=== PATIENT | female | born 1995 | race Two or more races ===

== ENCOUNTER 2020-01-26 17:29 | Emergency (ER) | payer BC ==
--- NOTE | 2020-01-26 18:09 | EDM.PDOC ---
<Carlos Chu - Last Filed: 01/26/20 20:57> ED HPI GENERAL MEDICAL PROBLEM - General Chief Complaint: General Stated Complaint: FEVER X5DAYS,NAUSEA/VOMITING X2DAYS Time Seen by Provider: 01/26/20 19:02 - History of Present Illness INITIAL COMMENTS - FREE TEXT/NARRATIVE: 24-year-old female presents the emergency room not feeling well. She has had fevers to high as 102 she is had significant nausea vomiting and an occasional loose stool. Patient was sent here from the walk-in clinic and apparently she had a lot of bilirubin in her urine. Patient describes not a lot of discomfort this is now 5 days into this earlier on she had higher fevers in the 102-102.5 range these seem to have backed down somewhat. Patient has a few more hard stools but she has not been eating very much. She is starting to take fluids better. She was tested for Covid twice both times negative she did not have loss of taste or smell. She does not have a lot of significant abdominal discomfort with this. Patient denies any history of a prior abdominal surgeries. She also denies any other medical problems. - Related Data Allergies Allergy/AdvReac Type Severity Reaction Status Date / Time No Known Allergies Allergy Verified 01/26/20 17:45 Home Meds: Home Meds Albuterol Sulfate [Albuterol Sulfate Hfa] 2 puff INH ASDIRECTED PRN 01/26/20 [History] Ondansetron [Zofran ODT] 4 - 8 mg PO Q6H PRN #20 tab.dis 01/26/20 [Rx] ED ROS GENERAL - Review of Systems Review Of Systems: See Below Constitutional: Reports: No Symptoms HEENT: Reports: No Symptoms Respiratory: Reports: No Symptoms Cardiovascular: Reports: No Symptoms, Dyspnea on Exertion GI/Abdominal: Reports: Abdominal Pain, Anorexia, Diarrhea, Decreased Appetite, Nausea, Vomiting. Denies: Black Stool, Bloody Stool : Reports: No Symptoms Musculoskeletal: Reports: No Symptoms Skin: Reports: No Symptoms Neurological: Reports: No Symptoms ED EXAM, GENERAL - Physical Exam Exam: See Below Exam Limited By: No Limitations General Appearance: Alert, No Apparent Distress Head: Atraumatic, Normocephalic Neck: Normal Inspection, Supple, Non-Tender, Full Range of Motion Respiratory/Chest: No Respiratory Distress, Lungs Clear, Normal Breath Sounds, No Accessory Muscle Use, Chest Non-Tender Cardiovascular: Normal Peripheral Pulses, Regular Rate, Rhythm, No Edema, No Gallop, No JVD, No Murmur, No Rub GI/Abdominal: Normal Bowel Sounds, Soft, Non-Tender. No: Rigid, Rebound, Tender Back Exam: Normal Inspection. No: CVA Tenderness (L), CVA Tenderness (R) Neurological: Alert, Oriented, Normal Cognition Course - Re-Assessments/Exams Free Text/Narrative Re-Assessment/Exam: 01/26/20 20:58 Hepatitis panel is pending at this point and of no surprises her Monospot is positive. This could very well explain all of her symptoms. Her direct bili is a little elevated at 1.6 with a total bilirubin of 2.2 her albumin is borde rline low at 3.4 this could be contributing to this. She has got a moderate transaminitis AST 335 ALT 461 GGT is 254 alk phos is 173 hepatitis panel is pending Departure - Departure Time of Disposition: 21:04 Disposition: Home, Self-Care 01 Clinical Impression: Infectious mononucleosis hepatitis - Discharge Information Prescriptions: Ondansetron [Zofran ODT] 4 - 8 mg PO Q6H PRN #20 tab.dis PRN Reason: Nausea/Vomiting Instructions: Infectious Mononucleosis, [id number] Referrals: Liza Wright, [employer]SEMBLER [Primary Care Provider] - Forms: ED Department Discharge Additional Instructions: Return to the emergency room with any questions problems or worsening symptoms. Push lots of fluids. Follow-up with your regular healthcare provider early this next week for recheck have them keep a close eye on your labs. You have been been given a prescription for Zofran take 1 every 4-6 hours as needed for nausea so you can keep a moderate diet and take adequate fluids. Was sent electronically to [facility] pharmacy You may use Tylenol for discomfort no more than 650 mg 4 times a day. Avoid ibuprofen or any of the other nonsteroidal anti-inflammatory medications. <Farhad Ibarra - Last Filed: 01/30/20 07:44> ED HPI GENERAL MEDICAL PROBLEM Head Pain Score (Numeric/FACES): 6 Past Medical History - Past Health History Medical/Surgical History: Denies Medical/Surgical History HEENT History: Reports: Impaired Vision Other HEENT History: wears reading glasses - Past Surgical History HEENT Surgical History: Reports: Tonsillectomy Social & Family History - Tobacco Use Tobacco Use Status *Q: Never Tobacco User - Caffeine Use Caffeine Use: Reports: None - Recreational Drug Use Recreational Drug Use: No Course - Vital Signs Last Recorded V/S: Last Vital Signs Temp 38.0 C 01/26/20 19:00 Pulse 62 01/26/20 17:41 Resp 20 01/26/20 17:41 BP Pulse Ox 98 01/26/20 17:41 - Orders/Labs/Meds Labs: Laboratory Tests 01/26/20 01/26/20 01/26/20 Range/Units 18:52 18:52 18:52 WBC 5.38 (3.98-10.04) K/mm3 RBC 4.85 (3.98-5.22) M/mm3 Hgb 14.6 (11.2-15.7) gm/dl Hct 43.0 (34.1-44.9) % MCV 88.7 (79.4-94.8) fl MCH 30.1 (25.6-32.2) pg MCHC 34.0 (32.2-35.5) g/dl RDW Std Deviation 39.1 (36.4-46.3) fL Plt Count 151 L (182-369) K/mm3 MPV 10.5 (9.4-12.3) fl Neut % (Auto) 14.4 L (34.0-71.1) % Lymph % (Auto) 64.9 H (19.3-51.7) % [place] % (Auto) 15.1 H (4.7-12.5) % Eos % (Auto) 0 L (0.7-5.8) Baso % (Auto) 5.4 H (0.1-1.2) % Neut # (Auto) 0.78 L (1.56-6.13) K/mm3 Lymph # (Auto) 3.49 (1.18-3.74) K/mm3 [place] # (Auto) 0.81 H (0.24-0.36) K/mm3 Eos # (Auto) 0.00 L (0.04-0.36) K/mm3 Baso # (Auto) 0.29 H (0.01-0.08) K/mm3 Manual Slide Review Abnormal smear PT 10.7 (9.7-12.0) SECONDS INR 1.00 Sodium 138 (136-145) mEq/L Potassium 3.7 (3.5-5.1) mEq/L Chloride 101 (98-107) mEq/L Carbon Dioxide 24 (21-32) mEq/L Anion Gap 16.7 H (5-15) BUN 9 (7-18) mg/dL Creatinine 0.7 (0.55-1.02) mg/dL Est Cr Clr Drug Dosing 91.90 mL/min Estimated GFR (MDRD) > 60 (>60) mL/min BUN/Creatinine Ratio 12.9 L (14-18) Glucose 85 (74-106) mg/dL Calcium 9.2 (8.5-10.1) mg/dL Total Bilirubin 2.2 H (0.2-1.0) mg/dL Direct Bilirubin 1.60 H (0.0-0.2) mg/dl GGT 254 H (5-55) U/L AST 335 H (15-37) U/L ALT 461 H (14-59) U/L Alkaline Phosphatase 173 H (46-116) U/L Total Protein 7.3 (6.4-8.2) g/dl Albumin 3.5 (3.4-5.0) g/dl Globulin 3.8 gm/dL Albumin/Globulin Ratio 0.9 L (1-2) Amylase (25-115) U/L Lipase (73-393) U/L Urine Color (Yellow) Urine Appearance (Clear) Urine pH (5.0-8.0) Ur Specific [place] (1.005-1.030) Urine Protein (Negative) Urine Glucose (UA) (Negative) Urine Ketones (Negative) Urine Occult Blood (Negative) Urine Nitrite (Negative) Urine Bilirubin (Negative) Urine Urobilinogen (0.2-1.0) Ur Leukocyte Esterase (Negative) Urine RBC (0-5) /hpf Urine WBC (0-5) /hpf Ur Squamous Epith Cells (0-5) /hpf Urine Bacteria (FEW) /hpf Urine Mucus (FEW) /hpf Hepatitis A IgM Ab (Negative) Hep Bs Antigen (Negative) Hep B Core IgM Ab (Negative) Hepatitis C Antibody (0.0-0.9) s/co ratio Monoscreen (NEGATIVE) 01/26/20 01/26/20 01/26/20 Range/Units 18:52 18:52 19:59 WBC (3.98-10.04) K/mm3 RBC (3.98-5.22) M/mm3 Hgb (11.2-15.7) gm/dl Hct (34.1-44.9) % MCV (79.4-94.8) fl MCH (25.6-32.2) pg MCHC (32.2-35.5) g/dl RDW Std Deviation (36.4-46.3) fL Plt Count (182-369) K/mm3 MPV (9.4-12.3) fl Neut % (Auto) (34.0-71.1) % Lymph % (Auto) (19.3-51.7) % [place] % (Auto) (4.7-12.5) % Eos % (Auto) (0.7-5.8) Baso % (Auto) (0.1-1.2) % Neut # (Auto) (1.56-6.13) K/mm3 Lymph # (Auto) (1.18-3.74) K/mm3 [place] # (Auto) (0.24-0.36) K/mm3 Eos # (Auto) (0.04-0.36) K/mm3 Baso # (Auto) (0.01-0.08) K/mm3 Manual Slide Review PT (9.7-12.0) SECONDS INR Sodium (136-145) mEq/L Potassium (3.5-5.1) mEq/L Chloride (98-107) mEq/L Carbon Dioxide (21-32) mEq/L Anion Gap (5-15) BUN (7-18) mg/dL Creatinine (0.55-1.02) mg/dL Est Cr Clr Drug Dosing mL/min Estimated GFR (MDRD) (>60) mL/min BUN/Creatinine Ratio (14-18) Glucose (74-106) mg/dL Calcium (8.5-10.1) mg/dL Total Bilirubin (0.2-1.0) mg/dL Direct Bilirubin (0.0-0.2) mg/dl GGT (5-55) U/L AST (15-37) U/L ALT (14-59) U/L Alkaline Phosphatase (46-116) U/L Total Protein (6.4-8.2) g/dl Albumin (3.4-5.0) g/dl Globulin gm/dL Albumin/Globulin Ratio (1-2) Amylase 39 (25-115) U/L Lipase 66 L (73-393) U/L Urine Color (Yellow) Urine Appearance (Clear) Urine pH (5.0-8.0) Ur Specific [place] (1.005-1.030) Urine Protein (Negative) Urine Glucose (UA) (Negative) Urine Ketones (Negative) Urine Occult Blood (Negative) Urine Nitrite (Negative) Urine Bilirubin (Negative) Urine Urobilinogen (0.2-1.0) Ur Leukocyte Esterase (Negative) Urine RBC (0-5) /hpf Urine WBC (0-5) /hpf Ur Squamous Epith Cells (0-5) /hpf Urine Bacteria (FEW) /hpf Urine Mucus (FEW) /hpf Hepatitis A IgM Ab Negative (Negative) Hep Bs Antigen Negative (Negative) Hep B Core IgM Ab Negative (Negative) Hepatitis C Antibody <0.1 (0.0-0.9) s/co ratio Monoscreen Positive H (NEGATIVE) 01/26/20 Range/Units 20:18 WBC (3.98-10.04) K/mm3 RBC (3.98-5.22) M/mm3 Hgb (11.2-15.7) gm/dl Hct (34.1-44.9) % MCV (79.4-94.8) fl MCH (25.6-32.2) pg MCHC (32.2-35.5) g/dl RDW Std Deviation (36.4-46.3) fL Plt Count (182-369) K/mm3 MPV (9.4-12.3) fl Neut % (Auto) (34.0-71.1) % Lymph % (Auto) (19.3-51.7) % [place] % (Auto) (4.7-12.5) % Eos % (Auto) (0.7-5.8) Baso % (Auto) (0.1-1.2) % Neut # (Auto) (1.56-6.13) K/mm3 Lymph # (Auto) (1.18-3.74) K/mm3 [place] # (Auto) (0.24-0.36) K/mm3 Eos # (Auto) (0.04-0.36) K/mm3 Baso # (Auto) (0.01-0.08) K/mm3 Manual Slide Review PT (9.7-12.0) SECONDS INR Sodium (136-145) mEq/L Potassium (3.5-5.1) mEq/L Chloride (98-107) mEq/L Carbon Dioxide (21-32) mEq/L Anion Gap (5-15) BUN (7-18) mg/dL Creatinine (0.55-1.02) mg/dL Est Cr Clr Drug Dosing mL/min Estimated GFR (MDRD) (>60) mL/min BUN/Creatinine Ratio (14-18) Glucose (74-106) mg/dL Calcium (8.5-10.1) mg/dL Total Bilirubin (0.2-1.0) mg/dL Direct Bilirubin (0.0-0.2) mg/dl GGT (5-55) U/L AST (15-37) U/L ALT (14-59) U/L Alkaline Phosphatase (46-116) U/L Total Protein (6.4-8.2) g/dl Albumin (3.4-5.0) g/dl Globulin gm/dL Albumin/Globulin Ratio (1-2) Amylase (25-115) U/L Lipase (73-393) U/L Urine Color Yellow (Yellow) Urine Appearance Clear (Clear) Urine pH 7.0 (5.0-8.0) Ur Specific [place] 1.025 (1.005-1.030) Urine Protein 1+ H (Negative) Urine Glucose (UA) Negative (Negative) Urine Ketones 2+ H (Negative) Urine Occult Blood Negative (Negative) Urine Nitrite Negative (Negative) Urine Bilirubin 3+ H (Negative) Urine Urobilinogen 4.0 H (0.2-1.0) Ur Leukocyte Esterase Negative (Negative) Urine RBC 0-5 (0-5) /hpf Urine WBC 0-5 (0-5) /hpf Ur Squamous Epith Cells 5-10 H (0-5) /hpf Urine Bacteria Few (FEW) /hpf Urine Mucus Moderate H (FEW) /hpf Hepatitis A IgM Ab (Negative) Hep Bs Antigen (Negative) Hep B Core IgM Ab (Negative) Hepatitis C Antibody (0.0-0.9) s/co ratio Monoscreen (NEGATIVE) Meds: Medications Discontinued Medications Generic Name Dose Route Start Last Admin Trade Name Freq PRN Reason Stop Dose Admin Lactated Ringer's 1,000 mls @ 999 mls/hr 01/26/20 19:21 01/26/20 19:26 Ringers, Lactated IV 01/26/20 20:21 999 mls/hr .BOLUS ONE Administration Ondansetron HCl 4 mg 01/26/20 20:56 01/26/20 21:19 Zofran Odt PO 01/26/20 20:57 4 mg ONETIME ONE Administration Sepsis Event Note (ED) - Evaluation Sepsis Screening Result: No Definite Risk
[2020-01-26] MEDS ORDERED: Lactated Ringers 1,000 ML IV ONE (19:21)
[2020-01-26] MEDS ORDERED: Ondansetron 4 MG Tab.DIS PO ONE (20:56)
== END 2020-01-26 21:19 | disposition home or self-care (01) ==
LOC: JD.ED 17:29
DX: B27.90 Infectious mononucleosis, unspecified without complication (principal); K75.9 Inflammatory liver disease, unspecified
CPT/HCPCS: 36415; 80053; 80074; 81001; 82150; 82248; 82977; 83690; 85025; 85610; 86308; 99284; A9270; J7120

== ENCOUNTER 2020-12-31 22:20 | Emergency (ER) | payer BC ==
[2020-12-31] MEDS ORDERED: Sodium Chloride 0.9% 1,000 ML IV ONE (23:01)
--- NOTE | 2021-01-01 00:30 | EDM.PDOC ---
ED HPI GENERAL MEDICAL PROBLEM - General Chief Complaint: CHIEF [employer]W SCHEDULER Problem Stated Complaint: VAGINAL BLEEDING/ Time Seen by Provider: 12/31/20 22:34 Source of Information: Reports: Patient History Limitations: Reports: No Limitations - History of Present Illness INITIAL COMMENTS - FREE TEXT/NARRATIVE: Patient is a 25-year-old female who is presenting here with vaginal bleeding after she had 3+ tests at home. Patient's last menstrual. Was approximately 5 weeks ago and that was a normal period. She is having mild vaginal cramping and has never been before. She denies being lightheaded with standing or any nausea or vomiting. She has had no dysuria. She has not been seen by a CHIEF CREW SCHEDULER. Patient would be 2 to 3 weeks by dates. Onset: Today Duration: Intermittent Location: Reports: Pelvis Quality: Reports: Ache Severity: Mild Improves with: Reports: None Worsens with: Reports: None Lower Abdomen Pain Score (Numeric/FACES): 3 - Related Data Allergies Allergy/AdvReac Type Severity Reaction Status Date / Time No Known Allergies Allergy Verified 12/31/20 22:37 Home Meds: Home Meds Albuterol Sulfate [Albuterol Sulfate Hfa] 2 puff INH ASDIRECTED PRN 01/26/20 [History] Ondansetron [Zofran ODT] 4 - 8 mg PO Q6H PRN #20 tab.dis 01/26/20 [Rx] Past Medical History - Past Health History Medical/Surgical History: Denies Medical/Surgical History HEENT History: Reports: Impaired Vision Other HEENT History: wears reading glasses - Past Surgical History HEENT Surgical History: Reports: Tonsillectomy Social & Family History - Tobacco Use Tobacco Use Status *Q: Never Tobacco User - Caffeine Use Caffeine Use: Reports: Coffee, Soda - Recreational Drug Use Recreational Drug Use: No ED ROS GENERAL - Review of Systems Review Of Systems: Comprehensive ROS is negative, except as noted in HPI. GI/Abdominal: Reports: Abdominal Pain : Reports: Other (Positive for vaginal bleeding starting today. Patient has had a home positive test.) ED EXAM - Physical Exam Exam: See Below Exam Limited By: No Limitations General Appearance: Alert, No Apparent Distress Head: Normocephalic Neck: Supple Respiratory/Chest: No Respiratory Distress, Lungs Clear Cardiovascular: Regular Rate, Rhythm GI/Abdominal Exam: Normal Bowel Sounds, Soft, Tender Back Exam: Normal Inspection Extremities: Normal Inspection Neurological: Alert, Oriented Psychiatric: Normal Affect, Normal Mood Skin Exam: Warm, Dry Course - Vital Signs Text/Narrative:: Patient's quantitative beta hCG returned at 1. Patient is O+ and does not need RhoGam. She got a liter of fluid here and is aware that her hormone level is seriously low. She is aware she most likely had a miscarriage. She needs to follow-up with her PCP or CHIEF CREW SCHEDULER to recheck that level to make sure it goes down to 0. Patient may return to emergency department if symptoms are worse. Last Recorded V/S: Last Vital Signs Temp 96.9 F 12/31/20 22:32 Pulse 79 12/31/20 22:32 Resp 20 12/31/20 22:32 BP 134/92 H 12/31/20 22:32 Pulse Ox 99 12/31/20 22:32 - Orders/Labs/Meds Labs: Laboratory Tests 12/31/20 12/31/20 Range/Units 23:25 23:30 HCG, Quant 1.0 mIU/mL Urine Color Yellow (Yellow) Urine Appearance Clear (Clear) Urine pH 6.5 (5.0-8.0) Ur Specific [place] 1.025 (1.005-1.030) Urine Protein Negative (Negative) Urine Glucose (UA) Negative (Negative) Urine Ketones Negative (Negative) Urine Occult Blood 3+ H (Negative) Urine Nitrite Negative (Negative) Urine Bilirubin Negative (Negative) Urine Urobilinogen 1.0 (0.2-1.0) Ur Leukocyte Esterase Negative (Negative) Meds: Medications Discontinued Medications Generic Name Dose Route Start Last Admin Trade Name Freq PRN Reason Stop Dose Admin Sodium Chloride 1,000 mls @ 1,000 mls/hr 12/31/20 23:01 12/31/20 23:28 Normal Saline IV 01/01/21 00:00 1,000 mls/hr ONETIME ONE Administration Departure - Departure Time of Disposition: 00:28 Disposition: Home, Self-Care 01 Condition: Good Clinical Impression: Complete miscarriage - Discharge Information Instructions: Miscarriage, [id number] Referrals: Liza Wright, [employer]ACHINE OPERATOR [Primary Care Provider] - Additional Instructions: Follow-up with PCP or CHIEF CREW SCHEDULER to make sure that your hormone level has gone down to 0. Return to emergency department if symptoms are worse. Sepsis Event Note (ED) - Evaluation Sepsis Screening Result: No Definite Risk - Focused Exam Vital Signs: Vital Signs Temp Pulse Resp BP Pulse Ox 12/31/20 22:32 96.9 F 79 20 134/92 H 99
== END 2021-01-01 00:45 | disposition home or self-care (01) ==
LOC: JD.ED 22:20
DX: O03.9 Complete or unspecified spontaneous abortion without complication (principal)
CPT/HCPCS: 36415; 84702; 99284; J7030

== ENCOUNTER 2021-12-24 02:24 | Emergency (ER) | payer BC ==
[2021-12-24] MEDS ORDERED: Ondansetron 4 MG Tab.DIS PO ONE (02:51)
[2021-12-24 03:59] LABS: CORONAVIRUS COVID-19 NAA POSITIVE (NEGATIVE)
== END 2021-12-24 04:10 | disposition home or self-care (01) ==
LOC: JD.ED 02:24
DX: U07.1 COVID-19 (principal)
CPT/HCPCS: 0241U; 99283; A9270

== ENCOUNTER 2022-04-15 07:04 | Inpatient (IN) | payer BC ==
[2022-04-15] MEDS ORDERED: Ondansetron 4 MG/2 ML SDV IVPUSH PRN (07:41)
[2022-04-15] MEDS ORDERED: Nalbuphine 10 MG/0.5 ML Syringe IVPUSH PRN (07:41)
[2022-04-15] MEDS ORDERED: Acetaminophen 325 MG Tab PO PRN (07:41)
[2022-04-15] MEDS ORDERED: Calcium Carbonate 500 MG Tab.Chew PO PRN (07:41)
[2022-04-15] MEDS ORDERED: Lidocaine 1% 50 ML MDV INJECT SCH (07:41)
[2022-04-15] MEDS ORDERED: Oxytocin/Lactated Ringers 10 UNIT/1,000 ML BAG IV SCH (07:45)
[2022-04-15] MEDS: Lactated Ringers 1,000 ML IV SCH ×2 (08:00→21:18)
[2022-04-15] MEDS: Oxytocin/Lactated Ringers 10 UNIT/1,000 ML BAG IV SCH ×2 (08:00→18:07)
[2022-04-15] MEDS ORDERED: fentaNYL 100 MCG/2 ML SDV EPIDUR PRN (20:59)
[2022-04-15] MEDS ORDERED: diphenhydrAMINE 50 MG/ML SDV IVPUSH PRN (20:59)
[2022-04-15] MEDS ORDERED: ePHEDrine 50 MG/ML SDV IVPUSH PRN (20:59)
[2022-04-15] MEDS: Bupivacaine/fentaNYL/NS 100 ML Bag EPIDUR PRN (21:15)
[2022-04-16] MEDS: Oxytocin/Lactated Ringers 10 UNIT/1,000 ML BAG IV SCH ×2 (00:29→11:32)
[2022-04-16] MEDS: Bupivacaine/fentaNYL/NS 100 ML Bag EPIDUR PRN (06:48)
[2022-04-16] MEDS ORDERED: Ropivacaine 0.2% PF 2 MG/ML 20 ML SDV ONE (08:00)
[2022-04-16] MEDS ORDERED: Lidocaine 2% with EPINEPHrine 1:200,000 20 ML SDV ONE (08:00)
[2022-04-16] MEDS ORDERED: Azithromycin 500 MG in Sodium Chloride 0.9% 250 ML IV ONE (12:07)
[2022-04-16] MEDS ORDERED: Citric Acid/Sodium Citrate Solution 30 ML Cup ONE (12:07)
[2022-04-16] MEDS ORDERED: Metoclopramide 10 MG/2 ML SDV ONE (12:07)
[2022-04-16] MEDS ORDERED: ceFAZolin 2 GM in Sodium Chloride 0.9% 50 ML IV ONE (12:07)
[2022-04-16] MEDS ORDERED: Metoclopramide 10 MG/2 ML SDV IVPUSH ONE (12:07)
[2022-04-16] MEDS ORDERED: Citric Acid/Sodium Citrate Solution 30 ML Cup PO ONE (12:07)
[2022-04-16] MEDS ORDERED: Bupivacaine 0.5% 30 ML SDV ONE (12:15)
[2022-04-16] MEDS ORDERED: Ondansetron 4 MG/2 ML SDV ONE ×2 (12:22→13:10)
[2022-04-16] MEDS ORDERED: Oxytocin 10 Units/1 ML SDV ONE (12:22)
[2022-04-16] MEDS ORDERED: ceFAZolin 2 GM Vial ONE (12:30)
[2022-04-16] MEDS ORDERED: Methylergonovine 0.2 MG/1 ML Amp ONE (12:59)
[2022-04-16] MEDS ORDERED: Ketorolac 30 MG/ML SDV ONE (13:10)
[2022-04-16] MEDS ORDERED: Phenylephrine HCl In 0.9% NaCl 1 MG/10 ML Vial ONE (13:11)
[2022-04-16] MEDS ORDERED: Albuterol 6.7 GM Inhaler INH PRN (13:19)
[2022-04-16] MEDS ORDERED: diphenhydrAMINE 50 MG/ML SDV IVPUSH PRN ×2 (13:29→14:17)
[2022-04-16] MEDS ORDERED: Meperidine 50 MG/ML Vial IVPUSH PRN (13:29)
[2022-04-16] MEDS ORDERED: Ondansetron 4 MG/2 ML SDV IVPUSH PRN (13:29)
[2022-04-16] MEDS ORDERED: fentaNYL 100 MCG/2 ML SDV IVPUSH PRN (13:29)
[2022-04-16] MEDS ORDERED: Dextrose 5%-Lactated Ringers 1,000 ML IV SCH (14:17)
[2022-04-16] MEDS ORDERED: ePHEDrine 50 MG/ML SDV IVPUSH PRN (14:17)
[2022-04-16] MEDS ORDERED: Ondansetron 4 MG/2 ML SDV IV PRN (14:17)
[2022-04-16] MEDS ORDERED: Naloxone 0.4 MG/ML SDV IVPUSH PRN (14:17)
[2022-04-16] MEDS: Acetaminophen/oxyCODONE 325-5 MG Tab PO PRN ×2 (15:26→20:02)
[2022-04-16] MEDS ORDERED: Lactated Ringers 1,000 ML IV ONE (17:18)
[2022-04-16] MEDS: Simethicone 80 MG Tab.Chew PO SCH ×2 (17:29→22:21)
[2022-04-16] MEDS: Ketorolac 30 MG/ML SDV IVPUSH SCH (17:41)
[2022-04-16] MEDS ORDERED: Ibuprofen 600 MG Tab PO SCH (20:00)
[2022-04-16] MEDS ORDERED: FLUTICASONE PROPIONATE INH SCH (21:00)
[2022-04-16] MEDS: Lactated Ringers 1,000 ML IV SCH (22:00)
[2022-04-17] MEDS: Ketorolac 30 MG/ML SDV IVPUSH SCH ×3 (00:16→13:20)
[2022-04-17] MEDS: Acetaminophen/oxyCODONE 325-5 MG Tab PO PRN ×4 (04:22→20:49)
[2022-04-17] MEDS ORDERED: Sodium Chloride 0.9% 250 ML IV SCH ×2 (07:00→08:01)
[2022-04-17] MEDS: Simethicone 80 MG Tab.Chew PO SCH ×4 (08:03→22:22)
[2022-04-17] MEDS: Prenatal Multivitamin with Calcium/Folic Acid/Iron Tab PO SCH (08:03)
[2022-04-17] MEDS ORDERED: HYDROmorphone 1 MG/ML Syringe IVPUSH PRN (12:56)
[2022-04-17] MEDS ORDERED: Metoclopramide 10 MG/2 ML SDV IVPUSH ONE (14:37)
[2022-04-17] MEDS ORDERED: Bisacodyl 10 MG Supp RECTAL ONE (14:46)
[2022-04-18] MEDS: Acetaminophen/oxyCODONE 325-5 MG Tab PO PRN ×6 (00:56→22:03)
[2022-04-18] MEDS: Simethicone 80 MG Tab.Chew PO SCH ×4 (09:08→22:02)
[2022-04-18] MEDS: Prenatal Multivitamin with Calcium/Folic Acid/Iron Tab PO SCH (09:08)
[2022-04-18] MEDS: Ibuprofen 600 MG Tab PO PRN ×2 (14:01→22:02)
[2022-04-19] MEDS: Ibuprofen 600 MG Tab PO PRN ×2 (06:18→12:51)
[2022-04-19] MEDS: Acetaminophen/oxyCODONE 325-5 MG Tab PO PRN (06:19)
[2022-04-19] MEDS: Simethicone 80 MG Tab.Chew PO SCH ×2 (12:37→12:51)
[2022-04-19] MEDS: Prenatal Multivitamin with Calcium/Folic Acid/Iron Tab PO SCH (12:51)
== END 2022-04-19 13:15 | disposition home or self-care (01) | DRG 540 ==
LOC: JD.OB 07:04 → OBSVTOIN 04-16 13:20
PROVIDERS: ADMIT Obstetrics & Gynecology; ATTEND Obstetrics & Gynecology
PROC: 10D00Z1 Extraction of Products of Conception, Low, Open Approach (ICD-10-PCS; principal; 2022-04-16)
PROC: 10907ZC Drainage of Amniotic Fluid, Therapeutic from Products of Conception, Via Natural or Artificial Opening (ICD-10-PCS; 2022-04-16)
PROC: 3E0P7VZ Introduction of Hormone into Female Reproductive, Via Natural or Artificial Opening (ICD-10-PCS; 2022-04-16)
PROC: 10H07YZ Insertion of Other Device into Products of Conception, Via Natural or Artificial Opening (ICD-10-PCS; 2022-04-16)
PROC: 3E0R3BZ Introduction of Anesthetic Agent into Spinal Canal, Percutaneous Approach (ICD-10-PCS; 2022-04-16)
PROC: 00HU33Z Insertion of Infusion Device into Spinal Canal, Percutaneous Approach (ICD-10-PCS; 2022-04-16)
DX: O99.52 Diseases of the respiratory system complicating childbirth (principal); J45.909 Unspecified asthma, uncomplicated; O99.02 Anemia complicating childbirth; D64.9 Anemia, unspecified; O77.0 Labor and delivery complicated by meconium in amniotic fluid; O62.1 Secondary uterine inertia; Z37.0 Single live birth; Z3A.39 39 weeks gestation of pregnancy; Z86.16 Personal history of COVID-19
CPT/HCPCS: 01967; 01968; 36415; 36430; 51702; 59025; 76705; 76705-26; 85025; 86592; 86850; 86900; 86901; 86922; 94762; A9270-GY; C1726; J0456; J0690; J1170; J1885; J2210; J2405; J2590; J2765; J2795; J3490; J7050; J7120; J7121; P9016

== ENCOUNTER 2024-01-31 05:11 | Inpatient (IN) | payer BC ==
[2024-01-31 05:48] LABS: BASOPHILS PERCENT AUTO 0.2 % (0.0-1.0); EOSINOPHILS ABSOLUTE AUTO 0.1 K/mm3 (0.0-0.4); EOSINOPHILS PERCENT AUTO 0.7 % (0.0-6.0); HEMATOCRIT 35.2 % (37.0-47.0); HEMOGLOBIN 12.1 gm/dl (12.0-16.0); IMMATURE GRAN ABSOLUTE AUTO 0.24 K/mm3 (0.00-0.05); IMMATURE GRAN PERCENT AUTO 2.8 % (0.0-0.4); LYMPHOCYTES ABSOLUTE AUTO 2.1 K/mm3 (1.0-4.8); LYMPHOCYTES PERCENT AUTO 24.8 % (24.0-44.0); MEAN CORPUSCULAR HEMOGLOBIN 32.4 pg (28.0-32.0); MEAN CORPUSCULAR HGB CONC 34.4 g/dl (32.0-36.0); MEAN CORPUSCULAR VOLUME 94.4 fl (83.0-99.0); MEAN PLATELET VOLUME 10.1 fl (9.4-12.3); MONOCYTES ABSOLUTE AUTO 0.5 K/mm3 (0.0-0.8); MONOCYTES PERCENT AUTO 5.8 % (0.0-8.0); NEUTROPHILS ABSOLUTE AUTO 5.6 K/mm3 (1.8-7.7); NEUTROPHILS PERCENT AUTO 65.7 % (41.0-71.0); PLATELET COUNT,PLT 165 K/mm3 (150-400); RED BLOOD CELL COUNT 3.73 M/mm3 (4.10-5.30); WHITE BLOOD CELL COUNT,WBC 8.46 K/mm3 (3.9-11.3)
[2024-01-31 06:10] LABS: A/G RATIO 0.6 (1-2); ALBUMIN 2.3 g/dl (3.4-5.0); ANION GAP 16.7 (5-15); BILIRUBIN TOTAL 0.8 mg/dL (0.2-1.0); CALCIUM 8.7 mg/dL (8.5-10.1); CREATININE 0.5 mg/dL (0.55-1.02); EST CRCL DRUG DOSING (CG) 124.15 mL/min; POTASSIUM,K 3.7 mEq/L (3.5-5.1); PROTEIN TOTAL,TP 6.3 g/dl (6.4-8.2)
[2024-01-31] MEDS ORDERED: Sodium Chloride 0.9% 10 ML Syringe FLUSH PRN ×2 (09:26→09:54)
[2024-01-31] MEDS ORDERED: ceFAZolin 2 GM in Sodium Chloride 0.9% 50 ML IV ONE (09:26)
[2024-01-31] MEDS: Lactated Ringers 1,000 ML IV SCH (09:30)
[2024-01-31] MEDS ORDERED: ceFAZolin 2 GM Vial IVPUSH ONE (09:30)
[2024-01-31] MEDS ORDERED: Oxytocin/0.9 % Sodium Chloride 30 UNIT/500 ML BAG IV SCH ×2 (09:30→12:49)
[2024-01-31] MEDS: Metoclopramide 10 MG/2 ML SDV IVPUSH ONE (09:45)
[2024-01-31] MEDS: Citric Acid/Sodium Citrate Solution 30 ML Cup PO ONE (09:45)
[2024-01-31] MEDS ORDERED: diphenhydrAMINE 50 MG/ML SDV IVPUSH PRN ×2 (09:54→12:49)
[2024-01-31] MEDS ORDERED: Ondansetron 4 MG/2 ML SDV IVPUSH PRN (09:54)
[2024-01-31] MEDS ORDERED: fentaNYL 100 MCG/2 ML SDV IVPUSH PRN (09:54)
[2024-01-31] MEDS ORDERED: Meperidine 50 MG/ML Vial IVPUSH PRN (09:54)
[2024-01-31] MEDS ORDERED: Morphine PF 10 MG/10 ML SDV ONE (09:57)
[2024-01-31] MEDS ORDERED: ceFAZolin 2 GM Vial ONE (09:58)
[2024-01-31] MEDS ORDERED: Lactated Ringers 1,000 ML IV SCH (10:00)
[2024-01-31] MEDS ORDERED: Phenylephrine 1% 10 MG/ML SDV ONE (10:34)
[2024-01-31] MEDS ORDERED: Ondansetron 4 MG/2 ML SDV ONE (10:35)
[2024-01-31] MEDS: Ketorolac 30 MG/ML SDV IVPUSH ONE (12:14)
[2024-01-31] MEDS ORDERED: oxyCODONE 5 MG Tab PO PRN (12:49)
[2024-01-31] MEDS ORDERED: ePHEDrine 50 MG/ML SDV IVPUSH PRN (12:49)
[2024-01-31] MEDS ORDERED: Naloxone 0.4 MG/ML SDV IVPUSH PRN (12:49)
[2024-01-31] MEDS ORDERED: Magnesium Hydroxide 400 MG/5 ML Susp 30 ML Cup PO PRN (12:49)
[2024-01-31] MEDS: Acetaminophen 325 MG Tab PO SCH (13:33)
[2024-01-31] MEDS: Simethicone 80 MG Tab.Chew PO SCH (13:33)
[2024-01-31] MEDS: Dextrose 5%-Lactated Ringers 1,000 ML IV SCH (13:35)
[2024-01-31] MEDS: Ondansetron 4 MG/2 ML SDV IV PRN (16:52)
[2024-01-31] MEDS: Ketorolac 30 MG/ML SDV IVPUSH SCH (17:27)
[2024-01-31 20:08] LABS: HEMATOCRIT 32.3 % (37.0-47.0); HEMOGLOBIN 10.9 gm/dl (12.0-16.0); MEAN CORPUSCULAR HGB CONC 33.7 g/dl (32.0-36.0); MEAN CORPUSCULAR VOLUME 94.7 fl (83.0-99.0); MEAN PLATELET VOLUME 10.1 fl (9.4-12.3); PLATELET COUNT,PLT 160 K/mm3 (150-400); RED BLOOD CELL COUNT 3.41 M/mm3 (4.10-5.30)
[2024-01-31 20:28] LABS: INR 0.97; PROTHROMBIN TIME 10.3 SECONDS (9.7-12.0)
[2024-01-31] MEDS: Lactated Ringers 1,000 ML IV ONE (20:30)
[2024-01-31] MEDS ORDERED: Sodium Chloride 0.9% 10 ML Syringe FLUSH SCH ×2 (21:00)
[2024-02-01] MEDS: Docusate Sodium 100 MG Cap PO SCH (00:06)
[2024-02-01 05:31] LABS: HEMATOCRIT 32.1 % (37.0-47.0); HEMOGLOBIN 10.9 gm/dl (12.0-16.0); MEAN CORPUSCULAR HEMOGLOBIN 32.5 pg (28.0-32.0); MEAN CORPUSCULAR VOLUME 95.8 fl (83.0-99.0); MEAN PLATELET VOLUME 10.5 fl (9.4-12.3); PLATELET COUNT,PLT 150 K/mm3 (150-400); RED BLOOD CELL COUNT 3.35 M/mm3 (4.10-5.30); WHITE BLOOD CELL COUNT,WBC 10.58 K/mm3 (3.9-11.3)
[2024-02-01] MEDS: Prenatal Multivitamin with Calcium/Folic Acid/Iron Tab PO SCH (10:10)
[2024-02-01] MEDS: Ibuprofen 600 MG Tab PO SCH (13:39)
[2024-02-01] MEDS: oxyCODONE 5 MG Tab PO PRN (20:51)
[2024-02-03 21:43] LABS: BILE ACIDS, TOTAL 41 umol/L (0-10)
== END 2024-02-02 11:50 | disposition home or self-care (01) | DRG 540 ==
LOC: JD.OBCHECK 05:11 → JD.OB 05:18 → JD.OBCHECK 09:26 → JD.OB 09:26 → OBSVTOIN 10:52 → JD.OB 14:12
PROVIDERS: ADMIT Obstetrics & Gynecology; ATTEND Obstetrics & Gynecology
PROC: 10D00Z1 Extraction of Products of Conception, Low, Open Approach (ICD-10-PCS; principal; 2024-01-31 10:30)
DX: O26.643 Intrahepatic cholestasis of pregnancy, third trimester (principal); O24.424 Gestational diabetes mellitus in childbirth, insulin controlled; O72.1 Other immediate postpartum hemorrhage; K76.89 Other specified diseases of liver; O34.211 Maternal care for low transverse scar from previous cesarean delivery; O26.62 Liver and biliary tract disorders in childbirth; E78.79 Other disorders of bile acid and cholesterol metabolism; Z37.0 Single live birth; Z3A.37 37 weeks gestation of pregnancy
CPT/HCPCS: 01961; 36415; 59025; 80053; 82239; 82947; 82977; 85025; 85027; 85384; 85610; 86592; 86850; 86900; 86901; A9270-GY; J0690; J1885; J2274; J2371; J2405; J2765; J7120; J7121

== ENCOUNTER 2024-02-04 23:51 | Inpatient (IN) | payer BC ==
[2024-02-05] MEDS: Sodium Chloride 0.9% 10 ML Syringe FLUSH PRN (00:03)
[2024-02-05 00:13] LABS: BASOPHILS PERCENT AUTO 0.3 % (0.0-1.0); EOSINOPHILS ABSOLUTE AUTO 0.1 K/mm3 (0.0-0.4); EOSINOPHILS PERCENT AUTO 1.8 % (0.0-6.0); HEMATOCRIT 31.2 % (37.0-47.0); IMMATURE GRAN ABSOLUTE AUTO 0.13 K/mm3 (0.00-0.05); IMMATURE GRAN PERCENT AUTO 1.7 % (0.0-0.4); LYMPHOCYTES ABSOLUTE AUTO 2.2 K/mm3 (1.0-4.8); LYMPHOCYTES PERCENT AUTO 28.7 % (24.0-44.0); MEAN CORPUSCULAR HEMOGLOBIN 31.9 pg (28.0-32.0); MEAN CORPUSCULAR HGB CONC 35.3 g/dl (32.0-36.0); MEAN CORPUSCULAR VOLUME 90.4 fl (83.0-99.0); MEAN PLATELET VOLUME 9.9 fl (9.4-12.3); MONOCYTES ABSOLUTE AUTO 0.5 K/mm3 (0.0-0.8); MONOCYTES PERCENT AUTO 6.2 % (0.0-8.0); NEUTROPHILS ABSOLUTE AUTO 4.7 K/mm3 (1.8-7.7); NEUTROPHILS PERCENT AUTO 61.3 % (41.0-71.0); PLATELET COUNT,PLT 211 K/mm3 (150-400); RED BLOOD CELL COUNT 3.45 M/mm3 (4.10-5.30); WHITE BLOOD CELL COUNT,WBC 7.71 K/mm3 (3.9-11.3)
[2024-02-05 00:39] LABS: BARBITURATE SCREEN,URINE NEGATIVE (CUTOFF=200); BENZODIAZEPINES SCREEN,URINE NEGATIVE (CUTOFF=150); BUPRENORPHINE SCREEN,URINE NEGATIVE (CUTOFF=10); METHADONE SCREEN, URINE NEGATIVE (CUTOFF=200); METHAMPHETAMINES SCREEN, URINE NEGATIVE (CUTOFF=500); OXYCODONE SCREEN,URINE NEGATIVE (CUT0FF=100); THC SCREEN,URINE 20 NG/ML NEGATIVE (CUTOFF=50)
[2024-02-05 00:43] LABS: A/G RATIO 0.6 (1-2); ALBUMIN 2.5 g/dl (3.4-5.0); ANION GAP 15.5 (5-15); BILIRUBIN TOTAL 0.4 mg/dL (0.2-1.0); BUN/CREATININE RATIO 18.6 (14-18); CALCIUM 8.7 mg/dL (8.5-10.1); CREATININE 0.7 mg/dL (0.55-1.02); EST CRCL DRUG DOSING (CG) 101.48 mL/min; MAGNESIUM 1.7 mg/dL (1.8-2.4); POTASSIUM,K 4.5 mEq/L (3.5-5.1); PROTEIN TOTAL,TP 6.6 g/dl (6.4-8.2); TSH 2.91 uIU/mL (0.358-3.74)
[2024-02-05 00:50] LABS: AMPHETAMINES SCREEN, URINE NEGATIVE (CUTOFF=500)
[2024-02-05 00:53] LABS: CREATININE,URINE RAND 14.9 mg/dL (30.0-125.0); PROTEIN CREATININE RATIO,URINE 771.8 mg/g (0-149); PROTEIN,URINE RANDOM 11.5 mg/dL (0.0-11.8)
[2024-02-05] MEDS ORDERED: Calcium Carbonate 500 MG Tab.Chew PO PRN (02:58)
[2024-02-05] MEDS: NIFEdipine 30 MG Tab.ER PO ONE (03:39)
[2024-02-05] MEDS: Acetaminophen 325 MG Tab PO PRN (03:44)
[2024-02-05] MEDS: Magnesium Sulfate/Water Premix 4 GM in Premix Bag 1 BAG IV ONE (04:13)
[2024-02-05] MEDS: Magnesium Sulfate/Water Premix 40 GM/1,000 ML BAG IV SCH (04:47)
[2024-02-05] MEDS: Lactated Ringers 1,000 ML IV SCH (04:55)
[2024-02-05] MEDS ORDERED: Calcium Gluconate 10% 1 GM/10 ML SDV IV PRN (07:35)
[2024-02-05] MEDS ORDERED: oxyCODONE 5 MG Tab PO PRN ×2 (09:20)
[2024-02-05] MEDS: NIFEdipine 30 MG Tab.ER PO SCH ×2 (10:09→13:50)
[2024-02-05] MEDS: Acetaminophen 325 MG Tab PO SCH (13:49)
[2024-02-05] MEDS: Docusate Sodium 100 MG Cap PO SCH (13:49)
[2024-02-05] MEDS: Ibuprofen 600 MG Tab PO SCH (13:49)
[2024-02-05] MEDS: Prenatal Multivitamin with Calcium/Folic Acid/Iron Tab PO SCH (13:49)
[2024-02-06] MEDS: Ondansetron 4 MG/2 ML SDV IVPUSH PRN (00:44)
[2024-02-06] MEDS: Metoclopramide 10 MG/2 ML SDV IVPUSH PRN (01:10)
[2024-02-06] MEDS: NIFEdipine 30 MG Tab.ER PO SCH (06:25)
== END 2024-02-06 13:15 | disposition home or self-care (01) | DRG 561 ==
LOC: JD.ED 23:51 → JD.OB 02-05 02:49
PROVIDERS: ADMIT Obstetrics & Gynecology; ATTEND Obstetrics & Gynecology
DX: O90.89 Other complications of the puerperium, not elsewhere classified (principal); O14.15 Severe pre-eclampsia, complicating the puerperium; I36.1 Nonrheumatic tricuspid (valve) insufficiency; Z98.891 History of uterine scar from previous surgery
CPT/HCPCS: 36415; 71045; 71045-26; 80053; 80306; 82570; 83615; 83735; 83880; 84156; 84443; 84484; 85025; 93005; 93306; 96365; 99285-25; A9270-GY; J2405; J2765; J3475; J7120

== ENCOUNTER 2024-05-02 23:16 | Emergency (ER) | payer BC ==
[2024-05-03] MEDS ORDERED: Sodium Chloride 0.9% 10 ML Syringe FLUSH PRN (00:08)
[2024-05-03 00:16] LABS: BASOPHILS PERCENT AUTO 0.3 % (0.0-1.0); EOSINOPHILS ABSOLUTE AUTO 0.1 K/mm3 (0.0-0.4); EOSINOPHILS PERCENT AUTO 0.9 % (0.0-6.0); HEMATOCRIT 42.9 % (37.0-47.0); HEMOGLOBIN 14.3 gm/dl (12.0-16.0); IMMATURE GRAN ABSOLUTE AUTO 0.04 K/mm3 (0.00-0.05); IMMATURE GRAN PERCENT AUTO 0.4 % (0.0-0.4); LYMPHOCYTES ABSOLUTE AUTO 2.4 K/mm3 (1.0-4.8); LYMPHOCYTES PERCENT AUTO 24.3 % (24.0-44.0); MEAN CORPUSCULAR HGB CONC 33.3 g/dl (32.0-36.0); MEAN CORPUSCULAR VOLUME 89.9 fl (83.0-99.0); MEAN PLATELET VOLUME 9.6 fl (9.4-12.3); MONOCYTES ABSOLUTE AUTO 0.6 K/mm3 (0.0-0.8); MONOCYTES PERCENT AUTO 6.2 % (0.0-8.0); NEUTROPHILS ABSOLUTE AUTO 6.6 K/mm3 (1.8-7.7); NEUTROPHILS PERCENT AUTO 67.9 % (41.0-71.0); PLATELET COUNT,PLT 367 K/mm3 (150-400); RED BLOOD CELL COUNT 4.77 M/mm3 (4.10-5.30); WHITE BLOOD CELL COUNT,WBC 9.74 K/mm3 (3.9-11.3)
[2024-05-03 00:24] LABS: A/G RATIO 1.2 (1-2); ALBUMIN 4.3 g/dl (3.4-5.0); ANION GAP 13.7 (5-15); BILIRUBIN TOTAL 1.5 mg/dL (0.2-1.0); BUN/CREATININE RATIO 21.1 (14-18); CALCIUM 9.3 mg/dL (8.5-10.1); CREATININE 0.9 mg/dL (0.55-1.02); EST CRCL DRUG DOSING (CG) 68.97 mL/min; POTASSIUM,K 3.7 mEq/L (3.5-5.1); PROTEIN TOTAL,TP 7.8 g/dl (6.4-8.2)
[2024-05-03 01:02] LABS: APPEARANCE,URINE SLT CLOUDY (Clear); BILIRUBIN,URINE 1+ (Negative); COLOR,URINE DARK YELLOW (Yellow); GLUCOSE,URINE NEGATIVE (Negative); KETONES,URINE NEGATIVE (Negative); LEUKOCYTE ESTERASE,URINE NEGATIVE (Negative); NITRITE,URINE NEGATIVE (Negative); OCCULT BLOOD,URINE 2+ (Negative); PROTEIN,URINE 1+ (Negative)
[2024-05-03 01:27] LABS: BACTERIA,URINE FEW /hpf (FEW); MUCUS,URINE MANY /hpf (FEW); SQUAMOUS EPITHELIAL CELLS,UR 0-5 /hpf (0-5); WBC,URINE 0-5 /hpf (0-5)
== END 2024-05-03 03:42 | disposition home or self-care (01) ==
LOC: JD.ED 23:16
DX: K80.20 Calculus of gallbladder without cholecystitis without obstruction (principal); J45.909 Unspecified asthma, uncomplicated; Z79.899 Other long term (current) drug therapy; Z79.51 Long term (current) use of inhaled steroids
CPT/HCPCS: 36415; 76705; 76705-26; 80053; 81001; 83690; 85025; 99284